=== PATIENT | male | born 1990 | race Hispanic/Latino ===

== ENCOUNTER 2017-04-17 13:25 | Emergency (ER) | payer SELFPAY ==
[~2017-04-17] VITALS: Ht 172.7 cm; Wt 115.2 kg
[2017-04-17] MEDS ORDERED: CEFAZOLIN SOD 1 GM VIAL IM STA (13:57)
[2017-04-17] MEDS ORDERED: ACETAMINOPHEN 325 MG TAB PO ONE (14:00)
[2017-04-17 16:00] VITALS: BP 129/77
== END 2017-04-17 16:08 | disposition home or self-care (01) ==
LOC: ER 13:25
DX: K13.0 Diseases of lips (principal)
CPT/HCPCS: 87400; 99283; J0690